=== PATIENT | male | born 1990 | race Caucasian/White ===

== ENCOUNTER 2017-12-17 08:09 | Emergency (ER) | payer OTHER ==
[~2017-12-17] VITALS: Ht 188 cm; Wt 127.0 kg
[2017-12-17 08:52] LABS: HEMATOCRIT 43.9 % (42.0-52.0); HEMOGLOBIN 14.4 gm/dL (14.0-18.0); MCH 28.7 pg (26.0-34.0); MCHC 32.8 g/dL (28.0-37.0); MCV 87.4 fL (80.0-100.0); MPV 8.4 fl. (7.2-11.1); NUCLEATED RBCS 0 /100WBC; PLATELET COUNT* 254 thou/uL (150-400); RBC 5.02 mil/uL (4.50-6.00); RDW-CV 15.1 % (10.5-14.5); WBC 12.2 thou/uL (4.0-11.0)
[2017-12-17 09:00] LABS: ANION GAP 6 mmol/L (7-16); BUN 8 mg/dL (7-18); CALCIUM 9.5 mg/dL (8.5-10.1); CHLORIDE 104 mmol/L (98-107); CO2 28 mmol/L (21-32); CREATININE 1.1 mg/dL (0.6-1.3); GLUCOSE 116 mg/dL (70-99); POTASSIUM 4.2 mmol/L (3.5-5.1); SODIUM 138 mmol/L (136-145)
[2017-12-17 09:06] LABS: ALBUMIN 3.9 g/dL (3.4-5.0); ALKALINE PHOSPHATASE 65 U/L (46-116); LIPASE 197 U/L (73-393); SGOT 25 U/L (15-37); SGPT 26 U/L (30-65); TOTAL BILIRUBIN 0.4 mg/dL (<0.1-1.0); TOTAL PROTEIN 7.4 g/dL (6.4-8.2); TROPONIN-I LEVEL <0.06 ng/mL (<0.06)
[2017-12-17 09:22] LABS: ABSOLUTE LYMPHOCYTES 1.2 thou/uL (0.8-5.3); ABSOLUTE MONOCYTES 0.9 thou/uL (0.0-1.2); ABSOLUTE NEUTROPHILS 10.1 thou/uL (1.6-8.1)
[2017-12-17 09:23] LABS: MACROCYTES Occasional; PLATELET ESTIMATE ADEQUATE
[2017-12-17] MEDS ORDERED: ATIVAN1 MG PO (09:43)
[2017-12-17 10:02] VITALS: BP 137/73
--- NOTE | 2017-12-18 13:37 | EKG ---
[place] [address] ELECTROCARDIOGRAM REPORT Name: JAKUB MONTEMAYOR Room: [facility]#: [id number] Admission: 12/17/17 Attend Phys: Discharge: 12/17/17 Date of : [birth year] Report #: [id number] THIS REPORT FOR: //name// [facility] ED Test Date: 2017-12-17 Test Time: 08:46:15 Pat Name: JAKUB MONTEMAYOR Department: Room: Gender: M Water Filtration Technician: Jeanette GARCIA : 1990 Requested By: Medhat Verdin Order Number: [id number] MD: Xavier Arguello Measurements Intervals [place] Rate: 86 P: 47 ND: 142 QRS: 58 QRSD: 111 T: 8 QT: 370 QTc: 443 Interpretive Statements Sinus rhythm ST elev, probable normal early repol pattern No previous ECG available for comparison Electronically Signed On 12-18-2017 13:37:16 CDT by Xavier Arguello [email or web address] <ELECTRONICALLY SIGNED> By: Xavier Arguello MD, [facility] 12/18/17 1337 5 Xavier Arguello MD, [facility] /EPI
== END 2017-12-17 10:04 | disposition home or self-care (01) ==
LOC: M.ERS 08:09
PROVIDERS: Emergency Medicine Emergency Medical Services
DX: F41.9 Anxiety disorder, unspecified (principal); R11.0 Nausea; Z88.0 Allergy status to penicillin